=== PATIENT | female | born 1950 | race Two or more races ===

== ENCOUNTER 2016-10-17 09:20 | Emergency (ER) | payer MEDICARE, OTHER ==
--- NOTE | ~2016-10-17 | EKG ---
PATIENT: LUISANA BEAVERS UNIT #: [id number] Ventricular Rate: 68 BPM Atrial Rate: 68 BPM P-R Interval: 154 ms QRS Duration: 92 ms Q-T Interval: 388 ms QTC Calculation(Bezet): 412 ms P [place]: 56 degrees Calculated R [place]: 29 degrees Calculated T [place]: -30 degrees Diagnosis Line: Normal sinus rhythm Diagnosis Line: Nonspecific T wave abnormality Diagnosis Line: Abnormal ECG Diagnosis Line: When compared with ECG of 25-NOV-2013 10:48, Diagnosis Line: No significant change was found Diagnosis Line: Confirmed by RADHA JAVIER MD ([id number]) on Diagnosis Line: 10/18/2016 1:29:19 PM INTERPRETING MD: YAYA TIAN
--- NOTE | ~2016-10-17 | CR72 ---
[facility] A Service of [facility] RADIOLOGY TEXT RESULTS PATIENT: LUISANA BEAVERS LOCATION: [facility] : [birth year] UNIT #: [id number] AGE: [address]: Nazario Ghosh DO SEX: F ORDER DR: [id number] [facility] [address] [place], [place] [address] [id number] E MR#: [id number] Acc #: [id number] NAME: LUISANA BEAVERS : 1950 SEX: F STUDY DATE/TIME: 10/17/2016 UNIT: [facility] ROOM: STUDY DESCRIPTION: CR Chest Single View Portable Attending Physician: Nazario Ghosh D.O. Ordering Physician: Nazario Ghosh D.O. Primary Care Physician: Heladio Zambrano MEDICAL IMAGING REPORT This report is preliminary unless electronic signature is present EXAM Chest portable 10/17/2016 1118 hours. HISTORY 66-year-old woman with elevated blood pressure today; patient had syncopal episode resulting in a fall today. COMPARISON 06/04/2014 FINDINGS Portable upright chest demonstrates mild cardiomegaly and tortuous aorta unchanged from 06/04/2014. The pulmonary vascularity is normal. The lungs are clear, and there are no effusions. No acute fractures seen. There is old healed right posterior seventh rib fracture. IMPRESSION Stable mild cardiomegaly and tortuous aorta. The lungs are clear. There are no pleural effusions. No pneumothorax or acute fracture seen. Dictated by... Shandra Sheets M.D. THIS IS AN ELECTRONICALLY VERIFIED REPORT Shandra Sheets M.D. at 10/17/2016 2:26 PM ADAM/narcisa TD: 10/17/2016 13:54 JOB #: [id number] MEDICAL IMAGING REPORT [facility] A Service of [facility] RADIOLOGY TEXT RESULTS PATIENT: LUISANA BEAVERS LOCATION: [facility] : 50 UNIT #: [id number] AGE: [address]: Nazario Ghosh DO SEX: F ORDER DR: Page 1 of 1 COPY
--- NOTE | ~2016-10-17 | CT71 ---
[facility] A Service of [facility] RADIOLOGY TEXT RESULTS PATIENT: LUISANA BEAVERS LOCATION: [facility] : 50 UNIT #: [id number] AGE: [address]: Nazario Ghosh DO SEX: F ORDER DR: [id number] [address] [address] [id number] E MR#: [id number] Acc #: [id number] NAME: LUISANA BEAVERS : 1950 SEX: F STUDY DATE/TIME: 10/17/2016 12:11 UNIT: [facility] ROOM: STUDY DESCRIPTION: CT Head Wo Contrast Attending Physician: Nazario Ghosh D.O. Ordering Physician: Nazario Ghosh D.O. Primary Care Physician: Heladio Zambrano MEDICAL IMAGING REPORT This report is preliminary unless electronic signature is present EXAM Head CT no contrast, 10/17/2016 COMPARISON 11/25/2013 PROCEDURE Axial unenhanced head CT. This CT exam was performed with one or more of the following radiation dose reduction techniques: automatic exposure control, adjustment of mA and/or kV according to patient size, and iterative reconstruction. HISTORY Dizziness and weakness since awakening this morning. FINDINGS The skull base and calvaria are normal. There is no intracranial hemorrhage or mass. There is no hydrocephalus or extraaxial fluid collection. Brain parenchymal density is within normal limits. IMPRESSION Normal negative unenhanced head CT, no interval change since 11/25/2013. Dictated by... Francesco Chowdhury M.D. THIS IS AN ELECTRONICALLY VERIFIED REPORT Francesco Chowdhury M.D. at 10/19/2016 1:21 PM DEBBIE/catherine [facility] A Service [facility] RADIOLOGY TEXT RESULTS PATIENT: LUISANA BEAVERS LOCATION: [facility] : 50 UNIT #: [id number] AGE: [address]: Hottman,Nazario M DO SEX: F ORDER DR: TD: 10/17/2016 14:44 JOB #: [id number] MEDICAL IMAGING REPORT Page 1 of 1 COPY
[~2016-10-17 09:20] MED LIST: NORVASC
[2016-10-17 10:32] LABS: URINE SOURCE CLEAN CATCH
[2016-10-17 10:35] LABS: URINE APPEARANCE CLEAR; URINE BILIRUBIN NEG (NEG); URINE BLOOD TRACE (NEG); URINE COLOR YELLOW; URINE GLUCOSE NEG (NEG); URINE KETONE NEG (NEG); URINE LEUKOCYTE ESTERASE TRACE (NEG); URINE NITRATE NEG (NEG); URINE PROTEIN NEG (NEG); URINE SPECIFIC GRAVITY 1.013 (1.003-1.035); URINE UROBILINOGEN 0.2 MG/DL (NEG)
[2016-10-17 10:37] LABS: U HYALINE CASTS AUWI 0-2 /[LPF]; URBCS1 AUWI 0-2 /[HPF] (0-2); URINE BACTERIA AUWI NEG (NEGATIVE); URINE SQUAMOUS EPITHELIAL CELL NONE SEEN /[HPF]
[2016-10-17 10:42] LABS: CULTURE INDICATED? NO
[2016-10-17 11:25] LABS: BASOPHIL# 0.1 X10e3 (0-0.3); BASOPHIL% 0.8 % (0-2.5); EOSINOPHIL# 0.2 X10e3 (0-0.7); EOSINOPHIL% 1.4 % (0.0-7.0); HEMATOCRIT 40.9 % (35.0-45.0); HEMOGLOBIN 13.2 gm/dL (12.0-16.0); LYMPHOCYTE# 3.2 X10e3 (1.0-3.5); LYMPHOCYTE% 24.3 % (17.0-45.0); MEAN CELL VOLUME 85.2 FL (83-96); MEAN CORPUSCULAR HEMOGLOBIN 27.6 PG (28-34); MEAN CORPUSCULAR HGB CONC 32.3 g/dL (30-36); MEAN PLATELET VOLUME 8.1 FL (6.5-11.5); MONOCYTE% 7.5 % (3.0-12.0); NEUTROPHIL# 8.6 X10e3 (1.5-7.1); PLATELET COUNT 314 X10e3 (140-420); RED CELL DISTRIBUTION WIDTH 14.4 % (11.0-15.5)
[2016-10-17 11:26] LABS: DIFF IND NO
[2016-10-17 11:44] LABS: POC - CKMB 1.1 ng/mL (0.0-7.9); POC - TROPONIN <0.05 ng/mL (<=0.05)
[2016-10-17 12:07] LABS: ALBUMIN SERUM 4.1 g/dL (3.5-5.0); BILIRUBIN, DIRECT 0.1 mg/dL (0.0-0.2); BILIRUBIN,INDIRECT 0.6 mg/dL (0.0-0.9); BILIRUBIN,TOTAL 0.7 mg/dL (0.2-2.0); BUN/CREATININE RATIO 17.5; CALCIUM SERUM 10.4 mg/dL (8.4-10.2); CREATININE SERUM 1.2 mg/dL (0.6-1.4); GLOM FILT RATE Estimated 47.1 mL/min (>60)
== END 2016-10-17 14:51 | disposition home or self-care (01) ==
LOC: CED 09:20
PROVIDERS: Emergency Medicine
DX: R42 Dizziness and giddiness (principal); R51 Headache; F41.9 Anxiety disorder, unspecified; E78.5 Hyperlipidemia, unspecified; I10 Essential (primary) hypertension; Z98.51 Tubal ligation status; Z88.0 Allergy status to penicillin; Z91.041 Radiographic dye allergy status
CPT/HCPCS: 70450; 71010; 80048; 80076; 81003; 82553; 82947; 84484; 85025; 93005; 99284; J1100